=== PATIENT | female | born 1985 | race Caucasian/White ===

== ENCOUNTER 2020-04-15 02:21 | Emergency (ER) | payer SELFPAY ==
[2020-04-15 02:37] VITALS: BP 141/83; PULSE 94; RESP 20; TEMP 36.2; O2SAT 99
--- NOTE | 2020-04-15 02:48 | ED.NAVMDI ---
HPI - Nausea/Vomiting/Diarrhea General Chief complaint: Abdominal Pain Stated complaint: Nausea, Vomiting, Diarrhea Time Seen by Provider: 04/15/20 02:27 Source: patient Mode of arrival: ambulatory Limitations: no limitations History of Present Illness HPI Narrative: 34-year-old woman comes in today complaining of vomiting and diarrhea which started about 1 hour prior to arrival here. Patient states that this evening she ate some shrimp. She states that she started to have cramping in her upper abdomen that is intermittent. She denies fever, blood in her stool, blood in her vomitus, rash, sick exposures, recent travel, or cough or cold symptoms. She states that she is and her LMP is 03/01/2020. This is her third . she denies vaginal bleeding and discharge. MD elicited complaint: nausea, vomiting, diarrhea and abdominal pain Onset (ago): hour(s) (1) Description of vomiting: food contents Description of diarrhea: watery Associated nausea: Yes Associated abdominal pain: Yes Location of pain: epigastric Pain consistency: intermittent Severity: moderate Quality: cramping Exacerbating factors: none Relieving factors: none Context: possible food poisoning Associated symptoms: nausea/vomiting Treatment prior to arrival: none Related Data Home Medications Medication Instructions Recorded Confirmed -yvyg fum-folic ac-om3 1 pkg PO DAILY 04/15/20 04/15/20 [Daily ] Allergies Allergy/AdvReac Type Severity Reaction Status Date / Time codeine AdvReac Unknown Verified 04/15/20 02:46 Penicillins AdvReac Unknown Verified 04/15/20 02:46 Review of Systems Constitutional: Constitutional: Denies chills, Denies fever(s) and Denies weakness Eyes: Eyes: Denies change in vision and Denies photophobia ENT: Denies dysphagia, Denies nasal congestion and Denies sore throat Cardiovascular: Cardiovascular: Denies chest pain and Denies radiating jaw, neck or arm pain Respiratory: Respiratory: Denies cough, Denies dyspnea and Denies wheezing Gastrointestinal: Gastrointestinal: Reports as per HPI Genitourinary: Genitourinary: Denies hematuria, Denies nocturia and Denies dysuria Musculoskeletal: Musculoskeletal: Denies back pain, Denies arthralgias and Denies joint swelling Integumentary/Breasts: Skin/Breast: Denies pruritus, Denies erythema and Denies rash Neurologic: Denies vertigo, Denies dizziness and Denies syncope Endocrine: Endocrine: Denies polydipsia and Denies polyuria Hematologic/Lymphatic: Hematologic/Lymphatic: Denies easy bleeding and Denies easy bruising Allergic/Immunologic: Allergic/Immunologic: Denies lip swelling and Denies wheezing [facility] Past Medical History Medical History Bipolar 1 disorder Surgical History Surgical History Hx of tonsillectomy Urolithiasis Social History Social History (Updated 04/15/20 @ 02:55 by Anup Mariano MD) Smoking status: Current some day smoker Substance use type: marijuana Living arrangements: with family Exam Const: Other: mild/mod acute distress HENMT: Head: normal to inspection Ears: external ears normal, TM's normal bilaterally and EAC's normal General nose exam: Normal nares present Mouth: Yes moist mucous membranes Throat: posterior oropharynx normal Eyes: Cornea: corneas normal Pupils: Equal, round and reactive pupils present EOM: EOMs intact bilaterally Neck: Neck: normal visual inspection and no meningeal signs Resp: Effort & Inspection: normal respiratory effort and not labored Auscultation: clear to auscultation bilaterally, no rales, no rhonchi and no wheezes Cardio: Rate: regular rate Rhythm: regular rhythm Heart sounds: no murmurs GI: Inspection: non-distended GI Palp: Yes Soft to palpation, Yes Tenderness to palpation present (GI) (mild, epigastric), No Guarding due to palpation pre
[2020-04-15] MEDS: SODIUM CHLORIDE 0.9% IV 1,000 ML 999 ML IV CONT (03:03)
[2020-04-15] MEDS: ACETAMINOPHEN 500 MG TABLET 1000 MG PO (03:04)
[2020-04-15] MEDS: PROMETHAZINE HCL 25 MG/ML AMPUL IV PUSH (03:06)
[2020-04-15 03:09] LABS: Basophils Absolute Auto 0.04 K/mm3 (0.00-0.10); Basophils Percent Auto 0.3 % (0.0-1.0); Eosinophils Absolute Auto 0.08 K/mm3 (0.02-0.50); Eosinophils Percent Auto 0.7 % (1.0-6.0); Hematocrit 43.6 % (35.0-49.0); Hemoglobin 14.4 g/dL (12.0-15.0); Immature Granulocyte Absolute 0.09 K/mm3 (0.00-0.00); Immature Granulocyte Percent A 0.8 % (0.0-0.0); Lymphocytes Absolute Auto 0.86 K/mm3 (1.10-4.50); Lymphocytes Percent Auto 7.3 % (18.0-42.0); Mean Corpuscular Hemoglobin 30.1 pg (27.0-31.0); Mean Platelet Volume 10.8 fl (9.2-11.8); Monocytes Absolute Auto 0.84 K/mm3 (0.10-0.90); Monocytes Percent Auto 7.2 % (2.0-11.0); Neutrophils Absolute Auto 9.8 K/mm3 (1.7-7.2); Neutrophils Percent Auto 83.7 % (50.0-70.0); Platelet Count Result 249 K/mm3 (150-420); Red Blood Count 4.79 M/mm3 (4.20-5.40); Red Cell Distribution Width 13.4 % (11.6-14.4); White Blood Count 11.7 K/mm3 (4.8-10.8)
[2020-04-15 03:25] LABS: Partial Thromboplastin Time 27.6 SEC (22.3-31.6)
[2020-04-15 03:35] LABS: HIV 1 P24 AG Negative (Negative); HIV 1/2 AB Negative (Negative)
[2020-04-15 03:54] LABS: Alanine Aminotransferase 19 U/L (14-59); Albumin Level 3.3 g/dL (3.4-5.0); Alkaline Phosphatase 72 U/L (46-116); Anion Gap 14.6 mmol/L (7-16); Aspartate Amino Transferase 11 U/L (15-37); Bilirubin,Total 0.5 mg/dL (0.00-1.00); Blood Urea Nitrogen 7 mg/dL (7-18); Calcium 8.5 mg/dL (8.5-10.1); Carbon Dioxide 27 mmol/L (21-32); Chloride 102 mmol/L (98-108); Estimated CRCL calculation 116 ml/min; Estimated Glomerular Filt Rate > 60; Glucose 117 mg/dL (70-99); Osmolality Calculated 289 mOsm/kg (285-295); Potassium 3.6 mmol/L (3.5-5.1); Sodium 140 mmol/L (136-145); Total Protein 7.1 g/dL (6.4-8.2)
[2020-04-15 04:03] LABS: Beta HCG Quantitative > 1000.00 mIU/mL (0-6)
[2020-04-15 04:04] LABS: Lipase 114 U/L (73-393)
[2020-04-15 04:16] LABS: Add Urine Microscopic? YES; Appearance Urine Clear (Clear); Bilirubin Urine Negative (Negative); Blood Urine 1+ (Negative); Color Urine Yellow (Yellow); Glucose Urine UA Negative (Negative); Ketones Urine Negative (Negative); Leukocyte Esterase Ur Trace (Negative); Nitrate Urine Positive (Negative); Protein Urine Negative (Negative); Urobilinogen Urine 0.2 mg/dL (0.2-1.0); pH Urine 7.5 (5.0-8.0)
[2020-04-15 04:22] LABS: Squamous Epithelial Cell Urine Moderate /hpf (Few)
[2020-04-15 04:23] LABS: Bacteria Urine 3+ /hpf
--- NOTE | 2020-04-15 04:51 | PC.NURSE ---
pt has been sleeping. awakened by erp to discuss plan of care and discharge . pt voiced understanding
[2020-04-15 04:52] VITALS: BP 124/87; PULSE 87; RESP 20; TEMP 36.8; O2SAT 98
--- NOTE | 2020-04-15 05:08 | PC.NURSE ---
0500 pt to car per wheelchair with optical instruments supervisor.
== END 2020-04-15 05:00 | disposition home or self-care (01) ==
PROVIDERS: Emergency Provider Emergency Medicine; PCP Internal Medicine
DX: K52.9 Noninfective gastroenteritis and colitis, unspecified (principal); R10.13 Epigastric pain
CPT/HCPCS: 36415; 80053; 81001; 83690; 84702; 85025; 85610; 85730; 86703; 86850; 86900; 86901; 96361; 96374; 99283; 99284; J2550; J7030

== ENCOUNTER 2020-04-15 15:26 | Observation (INO) | payer OTHER, SELFPAY ==
--- NOTE | ~2020-04-15 | US_ITS ---
EXAMINATION: US OB <=14 wk fetus w TV EXAM DATE: 04/15/2020 16:20 INDICATION: , pelvic pain. 1st trimester. TECHNIQUE: Pelvic obstetrical transabdominal sonogram was performed by a technologist. There are mu ltiple grayscale and Doppler images available for interpretation. There are no earlier studies of th is gestation for comparison. TECHNIQUE: Uterus measures 10.2 x 6.1 x 6.6 cm, with an anechoic region in the right cornua which co uld be a small early gestation sac, mean sac diameter of 5 mm corresponding to estimated gestational age 5 weeks 0 days. This appears to be less than a centimeter from the outer aspect of the myometrium , could be cornual ectopic . No pole identified or would be expected for a gestation s ac size. Endometrium was not specifically measured. There is small free pelvic fluid. Right adnexa: The ovary is not identified. There is no adnexal mass. Left adnexa: The ovary is not identified. There is no adnexal mass. IMPRESSION: Small anechoic cystic region in the right uterine cornua, possible early ectopic pregnanc y. Reviewed, dictated and finalized at location A. IMPRESSION: Small anechoic cystic region in the right uterine cornua, possible early ectopic .
--- NOTE | ~2020-04-15 | US_ITS ---
EXAMINATION: US right upper quadrant EXAM DATE: 04/16/2020 09:22 INDICATION: Upper abdominal pain. TECHNIQUE: Multiple grayscale and Doppler images of the abdomen right upper quadrant were obtained (mikel y a technologist who performed the scan) and subsequently reviewed. There is no prior study for davy barrera. FINDINGS: The pancreatic head and body are normal in appearance. The pancreatic tail is not visualized. The l iver has normal echogenicity and contour. There are no focal liver lesions identified. There is no evidence of intrahepatic biliary duct dilation. Portal venous flow was seen in the hepatopedal, nor mal direction and has normal Doppler waveform. No right-sided hydronephrosis. Common bile duct measures 4 mm, which is normal. The gallbladder wall is normal in thickness, with ex pected amount of distention. No sonographic evidence of pericholecystic fluid. There is no cholelit hiases. Technologist performing exam reports patient did not demonstrate sonographic Logan's sign. Please note that this sign is less reliable in patients who have received pain medication. IMPRESSION: 1. Unremarkable abdominal ultrasound exam. Reviewed, dictated and finalized at location B.
[2020-04-15 15:32] VITALS: BP 140/81; PULSE 104; RESP 19; TEMP 36.3; O2SAT 100
--- NOTE | 2020-04-15 15:50 | ED.ABDPAIN ---
HPI - Abdominal Pain General Chief Complaint: Abdominal Pain Stated Complaint: ABD PAIN/ Time Seen by Provider: 04/15/20 15:41 Source: patient Mode of arrival: ambulatory Limitations: no limitations History of Present Illness HPI narrative: Patient is a 34-year-old female who presents to emergency department for evaluation of upper abdominal pain for the last several days was seen at outside hospital yesterday told that she was also found to have urinary tract infection patient did not fill her medications and notes that she continues to have discomfort and retching. Patient notes she does not currently have an scrap carrier is unsure as to what help along she has in her patient is . . Patient has in the first couple of days she had had emesis which has resolved and now that she has nothing left to bring up she is only retching. Patient denies any URI symptoms. Pain is constant made worse with activity and movement. Patient is unsure as to the etiology of the pain with a worse more severe sharp cramping pain across the upper abdomen with some lesser cramping in the lower abdomen. Patient's last menstrual period was March 01. Patient has had vaginal births in the past. Patient denies concern for STDs. Patient denies similar occurrence in the past. Patient on arrival to emergency department in acute pain distress. Patient describes the pain as feeling like related contractions Related Data Home Medications Medication Instructions Recorded Confirmed [id number] fum-folic ac-om3 1 pkg PO DAILY 04/15/20 04/15/20 [Daily ] Allergies Allergy/AdvReac Type Severity Reaction Status Date / Time codeine AdvReac Unknown Verified 04/15/20 15:44 Penicillins AdvReac Unknown Verified 04/15/20 15:44 Review of Systems Review of Systems: All systems reviewed & are unremarkable except as noted in HPI and below PMFSH Past Medical History Medical History Bipolar 1 disorder Surgical History Surgical History Hx of tonsillectomy Urolithiasis Social History Social History Smoking status: Current some day smoker Substance use type: marijuana Gender identity (if verbalized by the patient): Female Exam Narrative: Exam Narrative: GENERAL: Ill-appearing, obese, and in acute pain HEAD: Normocephalic, atraumatic. EYES: PERRLA and EOMI. ENT: Nares clear, no rhinorrhea or epistaxis. Mucous membranes moist. Oropharynx without tonsillar hypertrophy exudate or other lesions. NECK: Supple. No adenopathy or masses. CHEST: Clear to auscultation. No respiratory distress. No wheezes rales or rhonchi HEART: Regular rate and rhythm. No murmur heard. Normal peripheral pulses. ABDOMEN: Soft, tenderness in the upper quadrants of the abdomen with some mild lower tenderness no rebound or guarding, nondistended FEMALE GENITOURINARY: Patient with normal vaginal exam with small amount of clear discharge EXTREMITIES: Normal range of motion. No edema. SKIN: Warm, dry, no rash. NEURO: No focal deficits. Alert and oriented x3. Cranial nerves II through XII grossly intact PSYCH: Normal mood and affect. Course Consultations Consultation #1: Discussed case with Dr. Multani who notes that the patient can be admitted to be observed overnight kept n.p.o. hydrated Date: 04/15/20 Time: 17:12 Vital Signs Vital signs: Vital Signs Temperature 97.4 F L 04/15/20 15:32 Pulse Rate 104 H 04/15/20 15:32 Respiratory Rate 19 04/15/20 15:32 Blood Pressure 140/81 04/15/20 15:32 Pulse Oximetry 100 04/15/20 15:32 Temperature 97.4 F L 04/15/20 15:32 Pulse Rate 93 04/15/20 18:28 Respiratory Rate 19 04/15/20 18:28 Blood Pressure 120/75 04/15/20 18:28 Pulse Oximetry 97 04/15/20 18:28 MDM - Abdominal Pain MDM Narr
--- NOTE | 2020-04-15 16:00 | PC.NURSE ---
Pt in ultrasound at this time, unable to collect labs, send urine or start ordered medications.
[2020-04-15] MEDS: FAMOTIDINE 20 MG/2 ML VIAL IV PUSH ×2 (16:20→20:06)
[2020-04-15] MEDS: SODIUM CHLORIDE 0.9% IV 1,000 ML 999 ML IV CONT (16:21)
[2020-04-15 16:36] LABS: Basophils Percent Auto 0.3 % (0.2-1.2); Eosinophils Percent Auto 0.1 % (0-4.4); Hematocrit 39.4 % (37.0-47.0); Hemoglobin 13.1 g/dL (12.0-15.0); Immature Granulocyte Absolute 0.05 K/mm3 (0.00-0.031); Immature Granulocyte Percent A 0.5 % (0-0.5); Lymphocytes Absolute Auto 0.83 K/mm3 (0.9-3.2); Lymphocytes Percent Auto 9.1 % (18.3-44.2); Mean Corpuscular HGB Conc 33.2 g/dl (32-36); Mean Corpuscular Hemoglobin 29.4 pg (26-34); Mean Corpuscular Volume 88.5 fl (80-100); Mean Platelet Volume 10.9 fl (7.4-10.4); Monocytes Absolute Auto 0.6 K/mm3 (0.1-0.6); Monocytes Percent Auto 6.9 % (2.6-8.5); Neutrophils Absolute Auto 7.6 K/mm3 (1.3-6.7); Neutrophils Percent Auto 83.1 % (45.5-73.1); Platelet Count Result 222 k/mm3 (150-375); Red Blood Count 4.45 M/mm3 (4.2-5.4); Red Cell Distribution Width 13.2 % (11.5-14.5); White Blood Count 9.1 K/mm3 (4.5-10.0)
[2020-04-15 16:44] LABS: Add Urine Microscopic? YES; Appearance Urine Cloudy (Clear); Bacteria Urine Trace /hpf; Bilirubin Urine Negative (Negative); Blood Urine Negative (Negative); Color Urine Yellow (Yellow); Glucose Urine UA Negative (Negative); Ketones Urine Negative (Negative); Leukocyte Esterase Ur Trace LEU/UL (Negative); Mucus Urine Moderate /lpf; Nitrate Urine Negative (Negative); Protein Urine 1+ mg/dL (Negative); Squamous Epithelial Cell Urine Many /hpf (Few); Urobilinogen Urine Negative mg/dL (<2.0)
[2020-04-15 16:52] LABS: Alanine Aminotransferase 13 U/L (4-35); Albumin Level 3.4 g/dL (3.5-5.1); Alkaline Phosphatase 66 U/L (38-126); Aspartate Amino Transferase 15 U/L (14-36); Bilirubin,Total 0.5 mg/dL (0.2-1.3); Blood Urea Nitrogen 3 mg/dL (7-17); Calcium 7.9 mg/dL (8.4-10.2); Carbon Dioxide 23 mmol/L (22-30); Chloride 105 mmol/L (98-107); Estimated CRCL calculation 162 ml/min; Estimated Glomerular Filt Rate > 60; Glucose 118 mg/dL (65-105); Potassium 3.5 mmol/L (3.4-5.0); Sodium 133 mmol/L (137-145)
[2020-04-15 18:28] VITALS: BP 120/75; PULSE 93; RESP 19; O2SAT 97
[2020-04-15 18:55] VITALS: BP 123/78; PULSE 92; RESP 19; O2SAT 97
[2020-04-15 20:00] VITALS: BP 122/66; PULSE 96; RESP 18; TEMP 37.3; O2SAT 100
[2020-04-15] MEDS: LACTATED RINGERS 1,000 ML 125 ML IV CONT (20:05)
--- NOTE | 2020-04-15 20:08 | ADMGEN ---
This patient, Pooja Ac, was admitted to 2 Medical Room 243-. Patient/family oriented to hospital policies and general routines including ID bracelet, bed and alarms, visiting hours, pain management, procedures, bathroom and other care routines, personal items, smoking policy, room service/diet, and visiting hours. Valuables list has been completed. Information on how to activate the Rapid Response Team has been discussed. Patient/Family are encouraged to report perceived risks to care and to ask questions if they do not understand what they are told or what they should do.
[2020-04-15 21:48] VITALS: BMI 49.6
[2020-04-15 22:00] VITALS: BP 122/66; PULSE 96; RESP 18; TEMP 37.3; O2SAT 100
[2020-04-16] VITALS: BP 118/64; PULSE 96; RESP 18; TEMP 36.7; O2SAT 98
[2020-04-16 05:52] LABS: Basophils Percent Auto 0.5 % (0.2-1.2); Eosinophils Absolute Auto 0.1 K/mm3 (0-0.3); Hematocrit 37.7 % (37.0-47.0); Hemoglobin 12.2 g/dL (12.0-15.0); Immature Granulocyte Absolute 0.03 K/mm3 (0.00-0.031); Immature Granulocyte Percent A 0.5 % (0-0.5); Lymphocytes Absolute Auto 1.46 K/mm3 (0.9-3.2); Mean Corpuscular HGB Conc 32.4 g/dl (32-36); Mean Corpuscular Hemoglobin 29.3 pg (26-34); Mean Corpuscular Volume 90.4 fl (80-100); Mean Platelet Volume 11.1 fl (7.4-10.4); Monocytes Absolute Auto 0.6 K/mm3 (0.1-0.6); Monocytes Percent Auto 10.6 % (2.6-8.5); Neutrophils Absolute Auto 3.7 K/mm3 (1.3-6.7); Neutrophils Percent Auto 62.4 % (45.5-73.1); Platelet Count Result 202 k/mm3 (150-375); Red Blood Count 4.17 M/mm3 (4.2-5.4); Red Cell Distribution Width 13.6 % (11.5-14.5); White Blood Count 5.9 K/mm3 (4.5-10.0)
[2020-04-16 06:00] VITALS: BP 107/81; PULSE 105; RESP 20; TEMP 35.9; O2SAT 100
[2020-04-16 06:05] LABS: Blood Urea Nitrogen 4 mg/dL (7-17); Calcium 7.3 mg/dL (8.4-10.2); Carbon Dioxide 23 mmol/L (22-30); Chloride 109 mmol/L (98-107); Estimated CRCL calculation 170 ml/min; Estimated Glomerular Filt Rate > 60; Glucose 99 mg/dL (65-105); Potassium 3.5 mmol/L (3.4-5.0); Sodium 137 mmol/L (137-145)
[2020-04-16 10:00] VITALS: BP 137/84; PULSE 74; RESP 16; TEMP 36.5; O2SAT 99
[2020-04-16] MEDS: LACTATED RINGERS 1,000 ML 125 ML IV CONT (10:01)
[2020-04-16] MEDS: FAMOTIDINE 20 MG TABLET 40 MG PO (10:02)
[2020-04-16] MEDS: BELLADONNA ALK/PHENOB ELIX 10 ML, MAG HYDROX/ALUMINUM HYD/SIMETH 30 ML, LIDOCAINE HCL 2... PO (11:45)
[2020-04-16 14:00] VITALS: BP 118/62; PULSE 89; RESP 16; TEMP 36.6; O2SAT 99
--- NOTE | 2020-04-16 14:21 | PM.IMHP ---
H&P: HPI History of Present Illness Chief complaint: Abdominal pain in Narrative: Pooja Ac is a 34 year old female LMP in end of January presented to ED after having severe upper abdominal pain. Was diagnosed with UTI. She did not start the antibiotics. She states that she thought she had food poisoning since had diarrhea and emesis for two from approximately 04/13. She then started having severe abdominal pain and went into ED. She had positive test in ED. She denies any vaginal bleeding, has mild cramping mostly mid and upper abdomen. No history of STD. No surgeries. Has had two vaginal deliveries. Ultrasound in ED showed possible cornual . She had what was described as moderate pain in ED. Her HCG quants having been increasing appropriately. She was recommended for admission for observation due to the uncertain location of and her pain. Review of Systems Review of Systems: All systems reviewed & are unremarkable except as noted in HPI and below Constitutional: Constitutional: Reports no additional constitutional complaints Eyes: Eyes: Reports no additional eye complaints Cardiovascular: Cardiovascular: Denies chest pain and Denies dyspnea Respiratory: Respiratory: Reports no additional respiratory complaints, Reports cough, Denies dyspnea and Reports other Genitourinary: Genitourinary: Reports no additional female genitourinary complaints, Reports as per HPI and Denies vaginal discharge Psychiatric: Psychiatric: Reports no additional psychiatric complaints PMFSH Past Medical History Medical History Bipolar 1 disorder Surgical History Surgical History Hx of tonsillectomy Urolithiasis Family History Family History Father Malignant neoplasm of prostate Mother Heart disease Grandparent Acute myocardial infarction Social History Social History Smoking packs per day: 0.25 Smoking cigarettes per day: 5.0 Years smoked: 21 Smoking pack-years: 5.25 Smoking status: Current every day smoker Tobacco type: cigarettes Alcohol intake: former Substance use: current Substance use type: marijuana Last use: 04/13/2020 Gender identity (if verbalized by the patient): Female Spiritual care concerns: No Meds Home Medications and Allergies Home Medications Medication Instructions Recorded Confirmed Type No Home Medications 04/15/20 04/15/20 History Allergies Allergy/AdvReac Type Severity Reaction Status Date / Time codeine AdvReac Unknown Verified 04/15/20 15:44 Penicillins AdvReac Unknown Verified 04/15/20 15:44 Vital Signs Vital Signs - 24 hr 04/15/20 15:32 04/15/20 18:28 04/15/20 18:55 Temperature 97.4 F L Pulse Rate 104 H 93 92 Respiratory Rate 19 19 19 Blood Pressure 140/81 120/75 123/78 Pulse Oximetry 100 97 97 04/15/20 20:00 04/15/20 22:00 04/16/20 00:00 Temperature 99.1 F 99.1 F 98.1 F Pulse Rate 96 96 96 Respiratory Rate 18 18 18 Blood Pressure 122/66 122/66 118/64 Pulse Oximetry 100 100 98 04/16/20 06:00 04/16/20 10:00 Temperature 96.7 F L 97.7 F Pulse Rate 105 H 74 Respiratory Rate 20 16 Blood Pressure 107/81 137/84 Pulse Oximetry 100 99 Exam Const: General: no acute distress, alert and awake Nutritional Appearance: well nourished Orientation/consciousness: oriented to person, oriented to place and patient oriented x3 HENMT: Head: normal to inspection Eyes: General: appearance normal, both eyes and all related structures Resp: Effort & Inspection: normal respiratory effort and other Auscultation: clear to auscultation bilaterally Cardio: Rate: regular rate Rhythm: regular rhythm GI: Inspection: normal to inspection GI Palp: Yes No hepatosplenomegaly present Rect
--- NOTE | 2020-04-16 14:33 | PM.OBPNVD ---
OB - PN: Subj Subjective Date/time seen: 04/16/20 0720 She states pain is mild to moderate upper. She wants to eat. States Tylenol did not help pain. OB - PN: Obj Data Labs CBC & Chem 7: 04/16/20 05:27 04/16/20 05:27 Labs: Laboratory Results - last 24 hr 04/15/20 04/15/20 04/15/20 16:22 16:22 16:22 WBC 9.1 RBC 4.45 Hgb 13.1 Hct 39.4 MCV 88.5 MCH 29.4 MCHC 33.2 RDW 13.2 Plt Count 222 MPV 10.9 H Immature Gran % (Auto) 0.5 Neut % (Auto) 83.1 H Lymph % (Auto) 9.1 L [place] % (Auto) 6.9 Eos % (Auto) 0.1 Baso % (Auto) 0.3 Lymph # (Auto) 0.83 L [place] # (Auto) 0.6 Eos # (Auto) 0.0 Baso # (Auto) 0.0 Abs Immat Gran (auto) 0.05 H Absolute Neuts (auto) 7.6 H Absolute Nucleated RBC 0.0 Nucleated RBC % 0.0 Sodium 133 L Potassium 3.5 Chloride 105 Carbon Dioxide 23 BUN 3 L Creatinine 0.50 L Estim Creat Clear Calc 162 Estimated GFR > 60 Glucose 118 H Calcium 7.9 L Total Bilirubin 0.5 AST 15 ALT 13 Alkaline Phosphatase 66 Total Protein 6.0 L Albumin 3.4 L Beta HCG, Quant 1954.40 Urine Color Yellow Urine Appearance Cloudy H Urine pH 6.0 Ur Specific [place] 1.020 Urine Protein 1+ H Urine Glucose (UA) Negative Urine Ketones Negative Ur Blood (Man) Negative Urine Nitrate Negative Urine Bilirubin Negative Urine Urobilinogen Negative Leukocyte Esterase Rfl Trace H Urine RBC 3-5 H Urine WBC 10-15 H Ur Squamous Epith Cells Many H Urine Bacteria Trace Urine Mucus Moderate H Trichomonas Direct ID 04/15/20 04/16/20 04/16/20 17:12 05:27 05:27 WBC 5.9 RBC 4.17 L Hgb 12.2 Hct 37.7 MCV 90.4 MCH 29.3 MCHC 32.4 RDW 13.6 Plt Count 202 MPV 11.1 H Immature Gran % (Auto) 0.5 Neut % (Auto) 62.4 Lymph % (Auto) 25.0 [place] % (Auto) 10.6 H Eos % (Auto) 1.0 Baso % (Auto) 0.5 Lymph # (Auto) 1.46 [place] # (Auto) 0.6 Eos # (Auto) 0.1 Baso # (Auto) 0.0 Abs Immat Gran (auto) 0.03 Absolute Neuts (auto) 3.7 Absolute Nucleated RBC 0.0 Nucleated RBC % 0.0 Sodium 137 Potassium 3.5 Chloride 109 H Carbon Dioxide 23 BUN 4 L Creatinine 0.50 L Estim Creat Clear Calc 170 Estimated GFR > 60 Glucose 99 Calcium 7.3 L Total Bilirubin AST ALT Alkaline Phosphatase Total Protein Albumin Beta HCG, Quant 2262.90 Urine Color Urine Appearance Urine pH Ur Specific [place] Urine Protein Urine Glucose (UA) Urine Ketones Ur Blood (Man) Urine Nitrate Urine Bilirubin Urine Urobilinogen Leukocyte Esterase Rfl Urine RBC Urine WBC Ur Squamous Epith Cells Urine Bacteria Urine Mucus Trichomonas Direct ID Negative Imaging Radiologist's impression: Impressions Obstetrics Ultrasound 04/15/20 16:31 IMPRESSION: Small anechoic cystic region in the right uterine cornua, possible early ectopic . Upper Quadrant Ultrasound 04/16/20 09:49 IMPRESSION: 1. Unremarkable abdominal ultrasound exam. OB - PN A/P Assessment and Plan (1) Abdominal pain in : Code(s): O26.899 - Other specified related conditions, unspecified trimester; R10.9 - Unspecified abdominal pain Status: Acute Assessment and Plan: I talked to her the morning of 04/16/20 and discussed with her the concern of the first ultrasound. I did review the images with the radiologist. He recommends additional views. Her HCG levels are going up appropriately. Discussed the recommendation for laparoscopy if the second ultrasound looked concerning for cornual . Discussed risk of laparoscopy. Discussed medical and surgical treatment of cornual . Discussed risk to her of future . She does not have risk factors or the other typical sy
--- NOTE | 2020-04-16 14:47 | PM.DS ---
DS: Admitting Diagnosis Admitting Diagnosis Admitting Diagnosis: with unknown location DS: Discharge Diagnosis Discharge Diagnosis (1) Intrauterine : Code(s): Z34.90 - Encounter for supervision of normal , unspecified, unspecified trimester Status: Acute (2) Gastroenteritis: Code(s): K52.9 - Noninfective gastroenteritis and colitis, unspecified Status: Acute DS: Summary Time Spent with Patient Time attestation: Total time spent providing and/or coordinating discharge services: DS: Data Data Completed and Pending Labs on day of discharge: Labs from last 24 hours 04/16/20 04/16/20 04/15/20 05:27 05:27 17:12 WBC 5.9 RBC 4.17 L Hgb 12.2 Hct 37.7 MCV 90.4 MCH 29.3 MCHC 32.4 RDW 13.6 Plt Count 202 MPV 11.1 H Immature Gran % (Auto) 0.5 Neut % (Auto) 62.4 Lymph % (Auto) 25.0 [place] % (Auto) 10.6 H Eos % (Auto) 1.0 Baso % (Auto) 0.5 Lymph # (Auto) 1.46 [place] # (Auto) 0.6 Eos # (Auto) 0.1 Baso # (Auto) 0.0 Abs Immat Gran (auto) 0.03 Absolute Neuts (auto) 3.7 Absolute Nucleated RBC 0.0 Nucleated RBC % 0.0 Sodium 137 Potassium 3.5 Chloride 109 H Carbon Dioxide 23 BUN 4 L Creatinine 0.50 L Estim Creat Clear Calc 170 Estimated GFR > 60 Glucose 99 Calcium 7.3 L Total Bilirubin AST ALT Alkaline Phosphatase Total Protein Albumin Beta HCG, Quant 2262.90 Urine Color Urine Appearance Urine pH Ur Specific [place] Urine Protein Urine Glucose (UA) Urine Ketones Ur Blood (Man) Urine Nitrate Urine Bilirubin Urine Urobilinogen Leukocyte Esterase Rfl Urine RBC Urine WBC Ur Squamous Epith Cells Urine Bacteria Urine Mucus C.trachomatis RNA (TMA) N.gonorrhoeae RNA (TMA) Trichomonas Direct ID Negative 04/15/20 04/15/20 04/15/20 17:12 16:22 16:22 WBC RBC Hgb Hct MCV MCH MCHC RDW Plt Count MPV Immature Gran % (Auto) Neut % (Auto) Lymph % (Auto) [place] % (Auto) Eos % (Auto) Baso % (Auto) Lymph # (Auto) [place] # (Auto) Eos # (Auto) Baso # (Auto) Abs Immat Gran (auto) Absolute Neuts (auto) Absolute Nucleated RBC Nucleated RBC % Sodium 133 L Potassium 3.5 Chloride 105 Carbon Dioxide 23 BUN 3 L Creatinine 0.50 L Estim Creat Clear Calc 162 Estimated GFR > 60 Glucose 118 H Calcium 7.9 L Total Bilirubin 0.5 AST 15 ALT 13 Alkaline Phosphatase 66 Total Protein 6.0 L Albumin 3.4 L Beta HCG, Quant 1954.40 Urine Color Yellow Urine Appearance Cloudy H Urine pH 6.0 Ur Specific [place] 1.020 Urine Protein 1+ H Urine Glucose (UA) Negative Urine Ketones Negative Ur Blood (Man) Negative Urine Nitrate Negative Urine Bilirubin Negative Urine Urobilinogen Negative Leukocyte Esterase Rfl Trace H Urine RBC 3-5 H Urine WBC 10-15 H Ur Squamous Epith Cells Many H Urine Bacteria Trace Urine Mucus Moderate H C.trachomatis RNA (TMA) Pending N.gonorrhoeae RNA (TMA) Pending Trichomonas Direct ID 04/15/20 16:22 WBC 9.1 RBC 4.45 Hgb 13.1 Hct 39.4 MCV 88.5 MCH 29.4 MCHC 33.2 RDW 13.2 Plt Count 222 MPV 10.9 H Immature Gran % (Auto) 0.5 Neut % (Auto) 83.1 H Lymph % (Auto) 9.1 L [place] % (Auto) 6.9 Eos % (Auto) 0.1 Baso % (Auto) 0.3 Lymph # (Auto) 0.83 L [place] # (Auto) 0.6 Eos # (Auto) 0.0 Baso # (Auto) 0.0 Abs Immat Gran (auto) 0.05 H Absolute Neuts (auto) 7.6 H Absolute Nucleated RBC 0.0 Nucleated RBC % 0.0 Sodium Potassium Chloride Carbon Dioxide BUN Creatinine Estim Creat Clear Calc Estimated GFR Glucose Calcium Total Bilirubin AST ALT Alkaline Phosphatase Total Protein Albumin Beta HCG, Quant Urine Color Urine Appearance Urine pH
== END 2020-04-16 15:45 | disposition home or self-care (01) ==
LOC: ANHED 18:35 → ANH2MED 19:11
PROVIDERS: Emergency Medicine Emergency Medical Services; Admitting Provider Obstetrics & Gynecology; Emergency Provider Emergency Medicine; PCP Internal Medicine; Visit Provider Obstetrics & Gynecology
DX: Z34.90 Encounter for supervision of normal pregnancy, unspecified, unspecified trimester (principal); K52.9 Noninfective gastroenteritis and colitis, unspecified
CPT/HCPCS: 36415; 76705; 76801; 76817; 80048; 80053; 81001; 84702; 85025; 87070; 87086; 87088; 87491; 87591; 87808; 96361; 96365; 96366; 96367; 96375; 96376; 99285; A9270; G0378; G0379; J0131; J0696; J7030; J7120

== ENCOUNTER 2020-04-30 22:02 | Emergency (ER) | payer OTHER, SELFPAY ==
[2020-04-30 22:20] VITALS: BP 150/87; PULSE 99; RESP 18; TEMP 36.4; O2SAT 99
--- NOTE | 2020-04-30 22:28 | ED.ABDPAIN ---
HPI - Abdominal Pain General Chief Complaint: Nausea/Vomiting/Diarrhea Stated Complaint: stomach pain Source: patient Mode of arrival: ambulatory History of Present Illness HPI narrative: this is a 34-year-old female that presents with some crampy abdominal pain suprapubic tenderness with bilateral flank tenderness no fever chills does have some nausea with no vomiting no diarrhea constipation no chest pain no shortness of breath. MD elicited complaint: abdominal pain Pertinent past history: none Onset (ago): hour(s) Pain Consistency: constant Location: none Severity: mild Quality: cramping Related Data Home Medications Medication Instructions Recorded Confirmed No Home Medications 04/15/20 04/15/20 Allergies Allergy/AdvReac Type Severity Reaction Status Date / Time codeine AdvReac Unknown Verified 04/15/20 15:44 Penicillins AdvReac Unknown Verified 04/15/20 15:44 Review of Systems Review of Systems: All systems reviewed & are unremarkable except as noted in HPI and below PMFSH Past Medical History Medical History Bipolar 1 disorder Surgical History Surgical History Hx of tonsillectomy Urolithiasis Social History Social History Smoking packs per day: 0.25 Smoking cigarettes per day: 5.0 Years smoked: 21 Smoking pack-years: 5.25 Smoking status: Current every day smoker Tobacco type: cigarettes Alcohol intake: former Substance use: current Substance use type: marijuana Last use: 04/13/2020 Gender identity (if verbalized by the patient): Female Spiritual care concerns: No Exam Const: General: no acute distress Orientation/consciousness: patient oriented x3 HENMT: Head: normal to inspection Eyes: Conjunctivae: conjunctivae normal Pupils: Equal, round and reactive pupils present Neck: Neck: normal visual inspection, no lymphadenopathy and no meningeal signs Chest: Chest palpation & inspection: normal inspection of the chest Resp: Effort & Inspection: normal respiratory effort Cardio: Rate: regular rate GI: GI Palp: Yes Soft to palpation and Yes Tenderness to palpation present (GI) : General: Yes CVA tenderness Back/Spine/Pelvis: Back: CVA tenderness Skin: General skin exam: normal color Rashes: no rashes Extrem: General: normal to inspection Psych: Mental Status: mental status grossly normal Affect: Anxious affect present Course Course Emergency Course: After assessment of patient, patient eloped from the hospital Critical Care Time Critical Care Time Critical Care Time: No Discharge Plan Discharge Clinical Impression: Abdominal pain Qualifiers: Abdominal location: lower abdomen, unspecified Qualified Code(s): R10.30 - Lower abdominal pain, unspecified Patient Disposition: Elopement Ater Seen by Prov Condition: Stable Prescriptions: No Action No Home Medications RF: 0 Follow-up/Referrals: Macho Miller MD [Primary Care Provider] - Time of Disposition: 22:31
== END 2020-04-30 22:36 ==
PROVIDERS: Emergency Provider Emergency Medicine; PCP Internal Medicine
DX: R10.30 Lower abdominal pain, unspecified (principal)
CPT/HCPCS: 99281; 99282

== ENCOUNTER 2021-11-29 17:46 | Emergency (ER) | payer OTHER, SELFPAY ==
--- NOTE | 2021-11-29 18:11 | ED.EYEPROB ---
HPI - Eye Problem General Chief complaint: Unspecified Stated complaint: stye Time Seen by Provider: 11/29/21 18:11 Source: patient Mode of arrival: ambulatory History of Present Illness HPI Narrative: 36-year-old female presents to the ER with swelling of the left lower eyelid. The pain radiates to the entire left side of the face. She has had a history of styes in the past. No other complaints. No mucopurulent eye discharge. chief complaint: eye pain Onset (ago): day(s) ( Two days) Onset description: gradual Location: left eye Eye Symptoms: pain Related Data Home Medications Medication Instructions Recorded Confirmed sertraline [Zoloft] 25 mg PO DAILY 04/30/20 11/29/21 buspirone 15 mg PO DAILY 11/29/21 11/29/21 labetalol 200 mg PO DAILY 11/29/21 11/29/21 venlafaxine 100 mg PO DAILY 11/29/21 11/29/21 Allergies Allergy/AdvReac Type Severity Reaction Status Date / Time codeine AdvReac Unknown Verified 01/27/21 09:04 Penicillins AdvReac Unknown Verified 01/27/21 09:04 Review of Systems Review of Systems: All systems reviewed & are unremarkable except as noted in HPI and below Constitutional: Constitutional: Reports as per HPI and Reports no additional constitutional complaints Eyes: Eyes: Reports photophobia Comments: left eye pain with swelling of the lower lid. ENT: Reports system reviewed and no additional complaints, except as documented Cardiovascular: Cardiovascular: Reports as per HPI and Reports no additional cardiovascular complaints Respiratory: Respiratory: Reports as per HPI and Reports no additional respiratory complaints Gastrointestinal: Gastrointestinal: Reports as per HPI and Reports no additional gastrointestinal complaints Musculoskeletal: Musculoskeletal: Reports no additional musculoskeletal complaints Integumentary/Breasts: Skin/Breast: Reports system reviewed and no additional complaints, except as docu Neurologic: Reports system reviewed and no additional complaints, except as documented Psychiatric: Psychiatric: Reports no additional psychiatric complaints Endocrine: Endocrine: Reports no additional endocrine complaints Hematologic/Lymphatic: Hematologic/Lymphatic: Reports no additional hematologic/lymphatic complaints Allergic/Immunologic: Allergic/Immunologic: Reports no additional allergic/immunologic complaints [facility] Past Medical History Medical History (Updated 11/29/21 @ 18:27 by Malvin Edmond MD) Bipolar 1 disorder Hordeolum externum (stye) Surgical History Surgical History Hx of tonsillectomy Urolithiasis Family History Family History Father Malignant neoplasm of prostate Mother Heart disease Grandparent Acute myocardial infarction Social History Social History (System 01/27/21 @ 09:04 by Dario Villagomez) Smoking packs per day: 0.25 Smoking cigarettes per day: 5.0 Years smoked: 21 Smoking pack-years: 5.25 Smoking status: Current every day smoker Tobacco type: cigarettes Alcohol intake: former Substance use: current Substance use type: marijuana Last use: 04/13/2020 Gender identity (if verbalized by the patient): Female Spiritual care concerns: No Exam Const: General: no acute distress and alert Orientation/consciousness: patient oriented x3 HENMT: Head: normal to inspection Eyes: Conjunctivae: conjunctivae normal Pupils: Equal, round and reactive pupils present Other: swelling of lower eyelid close to the lid margin and close to the external canthus. Tender on palpation. Conjunctiva, cornea and anterior chamber are clear. Neck: Neck: normal visual inspection and lymphadenopathy Chest: Chest palpation & inspection: normal inspection of the chest Resp: Effort & Inspection: normal respiratory effort Auscultation: clear to auscultation bilaterally Cardio: Rate: regular rate Rhythm: r
[2021-11-29 18:12] VITALS: PULSE 78; RESP 18; TEMP 36.6; O2SAT 98
[2021-11-29] MEDS: HYDROcodone/acetaminophen (*CRX) 5-325 MG TABLET 1 TAB PO (18:35)
[2021-11-29 18:39] VITALS: PULSE 78; RESP 20; TEMP 36.6; O2SAT 98
== END 2021-11-29 18:41 | disposition home or self-care (01) ==
PROVIDERS: Emergency Provider Internal Medicine Critical Care Medicine; PCP Internal Medicine
DX: H00.015 Hordeolum externum left lower eyelid (principal)
CPT/HCPCS: 99283; A9270

== ENCOUNTER 2023-10-28 12:23 | Outpatient (CLI) | payer OTHER, SELFPAY ==
--- NOTE | ~2023-10-28 | XR_ITS ---
Clinical Indication: Shortness of breath PA and lateral views of the chest: Comparison: None Findings: The lungs are clear, without evidence of focal consolidation or pleural effusion. Cardiome diastinal silhouette is within normal limits. Bones and soft tissues are unremarkable. Impression: Normal chest. Reviewed, dictated and finalized at [facility]. T WOMAN Impression: Normal chest.
[2023-10-28 12:52] LABS: Basophils Absolute Auto 0.08 K/mm3 (0.00-0.10); Eosinophils Absolute Auto 0.15 K/mm3 (0.02-0.50); Eosinophils Percent Auto 1.8 % (1.0-6.0); Hematocrit 44.3 % (35.0-49.0); Hemoglobin 14.1 g/dL (12.0-15.0); Immature Granulocyte Absolute 0.05 K/mm3 (0.00-0.00); Immature Granulocyte Percent A 0.6 % (0.0-0.0); Lymphocytes Absolute Auto 2.17 K/mm3 (1.10-4.50); Lymphocytes Percent Auto 26.4 % (18.0-42.0); Mean Corpuscular HGB Conc 31.8 g/dL (32.0-36.0); Mean Corpuscular Hemoglobin 29.6 pg (27.0-31.0); Mean Corpuscular Volume 93.1 fL (78.0-102.0); Mean Platelet Volume 10.3 fl (9.2-11.8); Monocytes Absolute Auto 0.64 K/mm3 (0.10-0.90); Monocytes Percent Auto 7.8 % (2.0-11.0); Neutrophils Absolute Auto 5.1 K/mm3 (1.7-7.2); Neutrophils Percent Auto 62.4 % (50.0-70.0); Platelet Count Result 284 K/mm3 (150-420); Red Blood Count 4.76 M/mm3 (4.20-5.40); Red Cell Distribution Width 14.4 % (11.6-14.4); White Blood Count 8.2 K/mm3 (4.8-10.8)
[2023-10-28 13:35] LABS: Alanine Aminotransferase 43 U/L (14-59); Albumin Level 3.1 g/dL (3.4-5.0); Alkaline Phosphatase 83 U/L (46-116); Anion Gap 8 mmol/L (8-16); Aspartate Amino Transferase 17 U/L (15-37); Bilirubin,Total 0.2 mg/dL (0.00-1.00); Blood Urea Nitrogen 9 mg/dL (7-18); Calcium 8.5 mg/dL (8.5-10.1); Carbon Dioxide 26 mmol/L (21-32); Chloride 105 mmol/L (98-108); Cholesterol 212 mg/dL (0-200); Estimated Glomerular Filt Rate > 60; Glucose 119 mg/dL (70-99); HDL Direct 44 mg/dL (40-60); LDL Cholesterol Calculated 136 mg/dL (<130); Osmolality Calculated 287 mOsm/kg (285-295); Potassium 4.9 mmol/L (3.5-5.1); Sodium 139 mmol/L (136-145); Thyroid Stimulating Hormone 1.18 uIU/mL (0.36-3.74); Total Protein 6.5 g/dL (6.4-8.2); Triglycerides 159 mg/dL (0-150)
[2023-10-30 09:07] LABS: Hemoglobin A1C 5.7 % (<5.7)
== END 2023-10-28 12:24 | disposition home or self-care (01) ==
LOC: CHSLAB 12:26
PROVIDERS: PCP Internal Medicine; Visit Provider Internal Medicine
DX: I10 Essential (primary) hypertension (principal); F32.A Depression, unspecified
CPT/HCPCS: 36415; 71046; 80053; 80061; 83036; 84443; 85025

== ENCOUNTER 2025-05-17 10:05 | Emergency (ER) | payer OTHER, SELFPAY ==
[2025-05-17 10:05] VITALS: BP 167/105; PULSE 84; RESP 16; TEMP 36.4; O2SAT 98
--- OUTSIDE RECORDS SUMMARY | 2025-05-17 10:11 | XMS_ITS | Patient Health Record ---
Author Organization [facility] Address [address] [place] [address] Care Team Providers Care Hearing Screener Name Role Phone Delaney Villarealge Primary Care Provider [phone] Allergies Allergen (clinical drug ingredient) Drug/Non Drug Allergy documented on EMR Reaction Allergy Type Onset Date Status Penicillin anaphylaxis Drug Allergy Acti ve Reason For Referral No Information Medications Medication SIG (Take, Route, Frequency, Duration) Notes Start Date End Date Status Vitamin B Complex No t-Taking Venlafaxine HCl ER 150 MG 2 capsules wit h food Orally Once a day; Duration: 30 days Active Diclofenac Sodium 75 MG 1 tablet as need ed FOR BACK PAIN Orally Twice a day 06/17/2022 Active Labetalol HCl 200 MG TAKE 1 TABLET BY [facility] TWICE DAILY FOR 15 DAYS; Duration: 15 Active Gabapentin 400 MG 1 tablet Orally Thre e times a day; Duration: 30 days Active KlonoPIN 0.5 MG 1 tablet as needed f or severe anxiety Orally Twice a day; Duration: 30 days 06/21/2023 Active Venlafaxine HCl ER 75 MG 1 capsule with food Orally Once a day; Duration: 30 days Active Social History Tobacco Use: Social History Observation Description Date Details (start date - stop date) Current Smoker NA - NA Sex Assigned At : Social History Observation Description Sex Assigned At Female Dont use, Tobacco Use/Smoking Question Answer Notes Are you a current smoker How often do you smoke cigarettes? every day How many cigarettes a day do you smoke? 6-10 Problems Problem Type SNOMED Code ICD Code Onset Dates Problem Status W/U Status Risk Notes Problem Morbid obesity (disorder) (422159376) Morbid (severe) obesity due to excess calories (E66.01) Active confirmed Problem Tobacco user (254577261) Nicotine dependence, unspecified, uncomplicated (F17.200) Active confirmed Problem Generalized anxiety disorder (90224953) Generalized anxiety disorder (F41.1) Active confirmed Problem Chronic pain (44227891) Other chronic pain (G89.29) Active confirmed Problem Sciatica (44374502) Lumbago with sciatica, right side (M54.41) Active confirmed Problem Mood disorder (79175183) Mood disorder (F39) Active confirmed r/o bipolar, BPD Problem Chronic fatigue syndrome (47921897) Chronic fatigue (R53.82) Active confirmed Problem Essential hypertension (91348813) Hypertension, unspecified type (I10) Active confirmed Problem 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 confirmed Plan Of Treatment Future Test Test Name Order Date HIV Screen *HIV 1, 2 Ab, p24 Ag ([id number]) 06/17/2022 Vitamin B12 and Folate 06/17/2022 Iron and TIBC* 06/17/2022 CBC With Differential/Platelet* 06/17/20 22 C-Reactive Protein, Quant 06/17/2022 Vitamin D, 25-Hydroxy* 06/17/2022 Hepatitis C Virus Antibody w/Rflx to [place] ntitative Real-time PCR ([id number]) 06/17/2022 Chlamydia/Gonococcus ROGERIO ([id number])* 06/17 CMP 14 Comprehensive Metabolic Panel* TSH Rfx on Abnormal to Free T4 2 RPR w/reflex to TrepSure 06/17/2022 Insurance Providers Payer Name Payer Address Payer Phone Subscriber Number Group Number Insured Name Patient Relationship to Insured Coverage Start Date Coverage End Date [employer] [address] [place] [phone] [id number] Pooja Ac Self - patient is the insured 2 [employer]et [employer] [address] [place] [phone] [id number] Pooja Ac Self - patient is the insured 2 Medical (General) History Medical History History ICD Code hypertension migraine headaches chronic pain Surgical History Surgery Date(Month/Year) Gallstone removal 2018 Hospitalization History Reason Date(Month/Year) Gallbladder stone removal 2018
--- NOTE | 2025-05-17 10:17 | ED_ITS ---
HPI - Eye Problem General Chief complaint: Eye Problems Stated complaint: eye irritation Time Seen by Provider: 05/17/25 10:17 Source: patient Mode of arrival: ambulatory Limitations: no limitations History of Present Illness HPI Narrative: 39-year-old female presents to the ED 5 day history of -- bilateral eye redness with tearing, pain and photophobia. She slept with contacts few days ago. Subsequently she notices elbow symptoms. His symptoms have gotten worse over the past 1 day. chief complaint: eye pain and eye redness Onset (ago): day(s) ( Five days) Onset description: gradual Duration: constant Location: both eyes Eye Symptoms: burning, redness, pain, foreign body sensation, discharge and photophobia Mechanism: other ( slept with her with contacts on) Severity: severe If Pain, Quality: burning Associated symptoms: none Treatments Prior to Arrival: none Related Data Home Medications ?Medication ?Instructions ?Recorded ?Confirmed ?Last Taken ?Type sertraline 25 mg tablet (Zoloft) 25 mg PO DAILY 04/30/20 11/29/21 Unknown History buspirone 15 mg tablet 15 mg PO DAILY 11/29/21 11/29/21 Unknown History labetalol 200 mg tablet 200 mg PO DAILY 11/29/21 11/29/21 Unknown History venlafaxine 100 mg tablet 100 mg PO DAILY 11/29/21 11/29/21 Unknown History Allergies Allergy/AdvReac Type Severity Reaction Status Date / Time codeine AdvReac Unknown Verified 01/27/21 09:04 Penicillins AdvReac Unknown Verified 01/27/21 09:04 Review of Systems Review of Systems: All systems reviewed & are unremarkable except as noted in HPI and below PMFSH Past Medical History Medical History Hordeolum externum (stye) Bipolar 1 disorder Surgical History Surgical History Hx of tonsillectomy Urolithiasis Family History Family History Father Malignant neoplasm of prostate Mother Heart disease Grandparent Acute myocardial infarction Social History Social History Smoking packs per day: 0.25 Smoking cigarettes per day: 5.0 Years smoked: 21 Smoking pack-years: 5.25 Smoking status: Current every day smoker Tobacco type: cigarettes Alcohol intake: former Substance use: current Substance use type: marijuana Last use: 04/13/2020 Living arrangements: with family Gender identity (if verbalized by the patient): Female Spiritual care concerns: No Exam Narrative: blood pressure is 167/105. Afebrile Const: General: ill appearing Nutritional Appearance: well nourished Orientation/consciousness: patient oriented x3 Limitations: no limitations HENMT: Head: normal to inspection Ears: external ears normal Face/Nose/Sinus: Normal external nose present Face and sinus: normal facial exam Mouth: Yes Normal oral and palatal mucosa present Throat: posterior oropharynx normal Eyes: Conjunctivae: conjunctival abnormality Pupils: Equal, round and reactive pupils present EOM: EOMs intact bilaterally Direct Ophthalmoscopy: photophobia Other: conjunctival erythema Involving both palpebral and bulbar conjunctiva. no significant Ciliary flush noted anterior chamber clear. no synechiae noted. fluorescein staining-- punctate deposits on the left cornea and right cornea Neck: Neck: normal visual inspection, no lymphadenopathy and no meningeal signs Chest: Chest palpation & inspection: normal inspection of the chest Resp: Effort & Inspection: normal respiratory effort Auscultation: clear to auscultation bilaterally Cardio: Rate: regular rate Rhythm: regular rhythm GI: Auscultation: normal bowel sounds Other: no tenderness/rigidity / rebound. : General: Yes no CVA tenderness Back/Spine/Pelvis: Back: no CVA tenderness Skin: General skin exam: normal color Rashes: no rashes Wounds: no wounds Neuro: General: patient oriented x3, moves all extremities, no meningeal signs, no focal motor deficits and CN's II-XI intact bilaterally Cranial nerves: Yes Nystagmus not present Speech: normal speech Extrem: General: normal to inspection and no clubbing, cyanosis or edema Psych: Mental Status: mental status grossly normal Course Course Emergency Course: contact lens conjunctivitis. Cannot rule out keratitis. give Cipro ophthalmic drops and p.r.n. [place] 7 tablets. Advised to follow up with orientation and mobility specialist if no relief noted in 2 days. Vital Signs Vital signs: Vital Signs Temperature 36.4 C L 05/17/25 10:05 Pulse Rate 84 05/17/25 10:05 Respiratory Rate 16 05/17/25 10:05 Blood Pressure 167/105 H 05/17/25 10:05 Pulse Oximetry 98 05/17/25 10:05 Oxygen Delivery Room Air 05/17/25 10:05 Temperature 36.4 C L 05/17/25 10:05 Pulse Rate 84 05/17/25 10:05 Respiratory Rate 16 05/17/25 10:05 Blood Pressure 167/105 H 05/17/25 10:05 Pulse Oximetry 98 05/17/25 10:05 Oxygen Delivery Room Air 05/17/25 10:05 MDM - Eye Problem MDM Narrative Medical decision making narrative: Contact lens conjunctivitis Differential Diagnosis Differential diagnosis: Likely corneal abrasion Discharge Plan Discharge Clinical Impression: Contact lens related conjunctivitis Patient Disposition: Home Condition: Stable Instructions: Antibiotic Form, Conjunctivitis (ED) Additional Instructions: if no improvement in 2 days follow up with orientation and mobility specialist Patient Language: Andorran Prescriptions: New hydrocodone-acetaminophen 5-325 mg tablet 1 tablet PO Q6H PRN (Reason: pain) Qty: 7 0RF No Action sertraline [Zoloft] 25 mg Tablet 25 mg PO DAILY labetalol 200 mg tablet 200 mg PO DAILY venlafaxine 100 mg tablet 100 mg PO DAILY buspirone 15 mg tablet 15 mg PO DAILY erythromycin 5 mg/gram (0.5 %) ointment 1 applic LEFT EYE DAILY Qty: 1 0RF tramadol [Ultram] 50 mg tablet 50 mg PO Q6H PRN (Reason: pain) Qty: 10 0RF Follow-up/Referrals: Macho Miller MD [Primary Care Provider] - Time of Disposition: 10:57
[2025-05-17] MEDS: DACRIOSE EYE IRRIGATION 118 ML BOTTLE EACH EYE (10:30)
[2025-05-17] MEDS: TETRACAINE HCL 0.5% OPHTH SOLN 4 ML BTL 1 DROP EACH EYE (10:30)
[2025-05-17] MEDS: FLUORESCEIN SOD 1 MG/STRIP EACH EYE (10:30)
--- OUTSIDE RECORDS SUMMARY | 2025-05-17 10:41 | XMS_ITS | Clinical Summary ---
Author Organization [facility] Address [address] [place] [address] Care Team Providers Care Laser Systems Engineer Name Role Phone Macho Miller MD Primary Care Provider [phone] Allergies Active Allergy Reactions Criticality Noted Date Comments Penicillins Anaphylaxis High 11/09/2020 Throat swells up and hives Medications Blood Pressure Monitor KitIndications:Pre -eclampsia, severe, condition (HHS/HCC) 1 kit by Does not apply route 3 (three) times a day. Continue checking your blood pressure at home. Check your blood pressure 3 times a day and keep record in a log book. Bring your log book to your next appointment. Please notify immediately if top number above 150 or bottom number above 100 or when having severe headache, shortness of breath, chest pain, nausea, or severe abdominal pain. 1 kit 11/29/19 21 Active clonazePAM 0.5 MG tablet Take 1 tablet (0.5 mg total) by mouth 2 (two) times a day. 04/26/20 22 Active propranolol LA 80 MG 24 hr capsule Take 2 capsules (160 mg total) by mouth nightly. 04/01/20 22 Active venlafaxine XR (EFFEXOR-XR) 150 MG 24 hr capsule Take 1 capsule (150 mg total) by mouth daily. Active gabapentin (NEURONTIN) 300 MG capsule Take 1 capsule (300 mg total) by mouth 3 (three) times daily. Active buPROPion XL (WELLBUTRIN XL) 150 MG 24 hr tablet Take 1 tablet (150 mg total) by mouth daily. Active HYDROcodone-acetam inophen (NORCO) 5-325 MG tabletIndications: Acute Pain < 7 Day Supply Take 1-2 tablets by mouth every 6 (six) hours as needed. Indications: Acute Pain < 7 Day Supply 15 tablet 06/23/20 24 Active ondansetron (ZOFRAN-ODT) 4 MG disintegrating tablet Take 1 tablet (4 mg total) by mouth every 8 (eight) hours as needed for Nausea. 12 tablet 06/23/20 24 Active Active Problems Problem Noted Date Diagnosed Date Pre-eclampsia, severe, condition ([facility]) 11/27/2020 hypertension ([facility]) 11/26/2020 Encounter for planned induction of labor ([facility]) 11/23/2020 Normal labor ([facility]) 11/23/2020 Positive urine drug screen 06/10/2020 Smoker unmotivated to quit 06/09/2020 Pyelonephritis complicating ([facility]) 06/09/2020 History of kidney stones 06/09/2020 3, currently ([facility]) 06/09/20 20 Bladder infection in mother during first trimester of ([facility]) 06/09/2020 Bipolar disorder ([facility]) Family History Medical History Relation Comments No Known Problems Brother Cancer Father Diabetes Father Emphysema Father blood disorder Maternal Grandfather Heart Disease Maternal Grandmother Heart Disease Mother No Known Problems Paternal Grandfather Hypertension Paternal Grandmother No Known Problems Sister 1 Hypertension Sister 2 Relation Status Comments Brother Alive Father Maternal Grandfather Maternal Grandmother Mother Paternal Grandfather Paternal Grandmother Sister 1 Alive Sister 2 Alive Social History Tobacco Use Types Packs/Day Years Used Date Smoking Tobacco: Every Day Cigarettes Smokeless Tobacco: Never Tobacco Cessation:Ready to Q uit: No; Counseling Given: Yes Alcohol Use Standard Drinks/Week Comments Not Currently 0 (1 standard drink = 0.6 oz pur e alcohol) Humiliation, Afraid, Rape, and Kick questionnair e Answer Date Recorded Within the last year, have y ou been afraid of your partner or ex-partner? No 11/23/2020 Within the last year, have y ou been humiliated or emotionally abused in other ways by your partner or ex-partner? No Within the last year, have y ou been kicked, hit, slapped, or otherwise physically hurt by your partner or ex-partner? No 11/23/2020 Within the last year, have y ou been raped or forced to have any kind of sexual activity by your partner or ex-partner? No 11/23/2020 Social Connection and Isolat ion Panel [NHANES] Answer Date Recorded In a typical week, how many times do you talk on the phone with family, friends, or neighbors? More than three times a week 11/23/2020 How often do you get togethe r with friends or relatives? More than three times a week 11/23/2020 How often do you attend chur ch or islam services? Never 11/23/2020 Do you belong to any clubs o r organizations such as mu-ism groups, unions, fraternal or athletic groups, or school groups? No 11/23/2020 How often do you attend meet ings of the clubs or organizations you belong to? Never 11/23/2020 Marital Status Not on file 11/23/2020 Overall Financial Resource Strain (CARDIA) Answe r Date Recorded How hard is it for you to pa y for the very basics like food, housing, medical care, and heating? Not very hard 11/23/2020 [facility] - Occupational Stress Questionnaire Answer Date Recorded Do you feel stress - tense, restless, nervous, or anxious, or unable to sleep at night because your mind is troubled all the time - these days? Only a little 11/23/2020 Exercise Vital Sign Answer Date Recorde d On average, how many days pe r week do you engage in moderate to strenuous exercise (like a brisk walk)? 0 days 11/23/2020 On average, how many minutes do you engage in exercise at this level? 0 min 11/23/2020 Hunger Vital Sign Answer Date Recorded Within the past 12 months, y ou worried that your food would run out before you got the money to buy more. Never true 11/23/19 21 Within the past 12 months, t he food you bought just didn't last and you didn't have money to get more. Never true 11/23/2020 PRAPARE - Transportation Answer Date Re corded In the past 12 months, has l ack of transportation kept you from medical appointments or from getting medications? No 10/2020 In the past 12 months, has l ack of transportation kept you from meetings, work, or from getting things needed for daily living? 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 AND RECEIVING Gender Identity Female 01/26/2025 7:15 PM CDT Sexual Orientation Straight 01/26/2025 7: 15 PM CDT Last Filed Vital Signs Vital Sign Reading Time Taken Comments Blood Pressure 157/93 01/27/2025 3:00 AM CDT Pulse 89 01/26/2025 11:00 PM CDT Temperature 37.2 C (99 F) 01/26/2025 6:49 PM CDT Respiratory Rate 24 01/26/2025 11:00 PM CDT Oxygen Saturation 95% 01/27/2025 3:00 AM CDT Inhaled Oxygen Concentration - - Weight 134.7 kg (297 lb) 01/26/2025 6:49 PM CDT Height 160 cm (5' 3) 01/26/2025 6:49 PM CDT Body Mass Index 52.61 01/26/2025 6:49 PM CDT Plan of Treatment Health Maintenance Due Date Last Done Comments Cervical Cancer Screening Pap Smear (Age 30 to 64) Every 3 Years 1984 Annual Physical 1987 Hepatitis C 2002 DTaP, Tdap and Td Vaccines (1 - Tdap) 2003 04/30/1990, 02/11/1985, 1984, Additional history exists Hepatitis B Vaccines (1 of 3 - 19+ 3-dose series) 2003 Pneumococcal Vaccine: Pediatrics (0 to 5 Years) and At-Risk Patients (6 to 49 Years) (1 of 2 - PCV) 2003 HPV Vaccines (1 - 3-dose SCDM series) 2011 Cervical Cancer Screening Pap with HPV Testing (Age 30 to 64) Every 5 Years 2014 Cervical Cancer Screening with HPV 2014 COVID-19 Vaccine ( season) 2024 Mammogram Screening 2024 Meningococcal B Vaccine Aged Out No l onger eligible based on patient's age to complete this topic Meningococcal Vaccine Aged Out No daniel bijan eligible based on patient's age to complete this topic RSV Immunizations Under 20 Months Aged Out No longer eligible based on patient's age to complete this topic Insurance [facility] Advance Directives * Full Code (Latest Code Status on File) Date Activated Date Inactivated Comments 11/27/2020 7:01 AM 11/29/2020 4:18 PM * Full Code Date Activated Date Inactivated Comments 11/26/2020 9:21 PM 11/27/2020 6:29 AM * Full Code Date Activated Date Inactivated Comments 11/23/2020 8:30 PM 11/25/2020 4:15 PM * Full Code Date Activated Date Inactivated Comments 11/23/2020 7:12 AM 11/23/2020 8:30 PM * Full Code Date Activated Date Inactivated Comments 06/09/2020 5:54 PM 06/12/2020 12:09 PM Care Teams Laser Systems Engineer Relationship Specialty Start Date End Date Macho Miller MD [address] [place] [address] PCP - General INTERNAL MEDICINE 09/07/21
--- OUTSIDE RECORDS SUMMARY | 2025-05-17 10:41 | XMS_ITS | Encounter Summary ---
Author Organization [facility] Address [address] [place] [address] Care Team Providers Care Packing And Wrapping Supervisor Name Role Phone Macho Miller MD Primary Care Provider [phone] Alivia Sebastian MD Primary Care Provider [phone] None, Provider Primary Care Provider Unavaila ble Alivia Sebastian MD Primary Care Provider [phone] Macho Miller MD Primary Care Provider [phone] Encounter Details Date Type Department Care Team (Late st Contact Info) Description 03/30/2019 Abstract SFL CONVERSION [address] [place] [address] , Generic Conversion, Social History Tobacco Use Types Packs/Day Years Used Date Smoking Tobacco: Never Assessed Comments Unknown Sex and Gender Information Value Date Recorded Sex Assigned at Female 01/26/2025 7:15 PM CDT Legal Sex Female 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 Gender Identity Female 01/26/2025 7:15 PM CDT Sexual Orientation Straight 01/26/2025 7: 15 PM CDT documented as of this encounter Plan of Treatment Not on file documented as of this encounter Visit Diagnoses Not on filedocumented in this encounter Additional Health Concerns Infection Onset Date Last Indicated Resolved Time COVID-19 Rule Out 11/27/2020 11/27/2020 11/27/2020 3:10 AM CHIROPRACTIC ASSISTANT COVID-19 Rule Out 01/26/2025 01/26/2025 01/26/2025 8:24 PM CDT documented as of this encounter Care Teams Packing And Wrapping Supervisor Relationship Specialty Start Date End Date Macho Miller MD PCP - General INTERNAL MEDICINE 05/27/20 08/17/20 Alivia Sebastian MD [address] [place] [id number] PCP - General FAMILY PRACTICE 08/18/20 11/26/20 Mavis Du MD PCP - General 11/27/20 12/23/20 Alivia Sebastian MD [address] [place] [id number] PCP - General FAMILY PRACTICE 12/24/20 09/06/21 Macho Miller MD [address] [place] [address] PCP - General INTERNAL MEDICINE 09/07/21 documented as of this encounter
[2025-05-17] MEDS: CIPROFLOXACIN HCL 0.3% OP SOLN 2.5 ML BTL 1 DROP EACH EYE (10:45)
== END 2025-05-17 11:00 | disposition home or self-care (01) ==
PROVIDERS: Emergency Provider Internal Medicine Critical Care Medicine; PCP Internal Medicine
DX: H10.89 Other conjunctivitis (principal); F17.210 Nicotine dependence, cigarettes, uncomplicated; Y77.11 Contact lens associated with adverse incidents
CPT/HCPCS: 99283; A9270